=== PATIENT | male | born 1960 | race Caucasian/White ===

== ENCOUNTER → 2025-05-18 09:45 | Outpatient (REF) | payer OTHER, SELFPAY | LOC: RAD 09:45 | PROVIDERS: ATTENDING PHYSICIAN Internal Medicine Cardiovascular Disease; FAMILY PHYSICIAN Internal Medicine | DX: R94.39 Abnormal result of other cardiovascular function study (principal) | CPT/HCPCS: 75574; Q9967 ==

== ENCOUNTER 2025-06-17 08:43 | Emergency (ER) | payer OTHER, SELFPAY ==
[2025-06-17] VITALS (7 sets, daily range): BP systolic 140–169; BP diastolic 69–89
[2025-06-17 08:48] LABS: Glucose - Point of Care 198 mg/dl (70-99)
[2025-06-17 09:28] LABS: Hematocrit 50.3 % (39.0-52.0); Hemoglobin 17.7 g/dL (13.0-18.0); Mean Corp Hgb Conc. 35.2 g/dL (33.0-37.0); Mean Corpuscular Volume 86.4 fL (80.0-94.0); Nucleated Red Blood Cells % 0 % (-); Platelet Count 201 10^3/uL (130-400); Red Cell Dist. Width 12.2 % (11.5-14.5)
[2025-06-17] MEDS: ANTIVERT 25 MG PO (09:29)
[2025-06-17] MEDS: NSS 500 IV (09:29)
--- NOTE | 2025-06-17 09:42 | ED.GENMED ---
History of Present Illness
General
Chief Complaint: Dizziness
Time Seen by Provider: 06/17/25 08:57
Nursing documentation reviewed up to this point in time: agreed with
History of Present Illness
History of Present Illness:
65-year-old male presents to the ER with a friend for evaluation of severe sensation of dizziness, nausea, cold sweat and multiple bowel movements this morning. Patient states that he does have a history of M�ni�re's disease but does not have any
medications at home to take for any symptomatic exacerbations. He states that he been feeling well in the past few days. No recent change in his medications. He has been eating and drinking without difficulty. No recent dental treatments. He
states that he has an appointment with the cardiothoracic surgeon later this month as he is supposed to undergo bypass surgery. He denies any chest pain. No palpitations. No cough or cold symptoms. No recent change in exercise tolerance. He
denies peripheral edema. No paresthesias. No focal weakness to extremities. He denies change in vision, in particular no amaurosis fugax. Patient states that he was experiencing ringing in his ears along with a feeling of pressure in his left
ear this morning which has since resolved. He is still feeling dizzy. He denies any syncope or trauma.
Past History
Past History
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 Has appt. for surgery to have removed. ) and Other (Diabetes)
ED Past Surgical History: Bowel resection and Tonsilectomy
Social History
Tobacco: Non-smoker
Alcohol: Occasional
Drug: None
Personal:
Living: with family
Employment: Employed
Family History
Family History: Other (Dad with bladder cancer and Alzheimer's, mother with angina diabetes)
Review of Systems
Review of Systems
Allergies reviewed?: Yes
Phy Exam
Physical Exam
Physical Exam:
Patient is awake, alert, head is normocephalic atraumatic, elderly, appears in no acute distress, mucous membranes moist, conjunctiva pink, left tympanic membrane is within normal limits without erythema or effusion, tongue is midline, no facial
asymmetry noted, GCS is 15, no dysdiadochokinesia, mild difficulty with the left arm [id number], no pronator drift, moving all extremities symmetrically without focal deficit, heart regular rate and rhythm not murmurs or ectopy, lungs are clear
to auscultation without wheezes rales or rhonchi, abdomen is soft and nontender, 2+ DP pulses present symmetric bilateral feet, no edema noted, bilateral upper extremities with 2+ radial pulses
Course
Orders/Labs/Results
Orders:
Orders
06/17/25 08:48
ECG [Electrocardiogram (*1)] Urgent
Reason for Study: Vertigo / Dizzy
EKG- Treatment ONCE
06/17/25 09:15
Basic Metabolic Panel Urgent
Complete Blood Count/With Diff Urgent
06/17/25 09:21
IV Insert/Care/Rem.- Treatment PRN
0.9% Sodium Chloride 500 ml [Nss] 500 ml IV BOLUS
Meclizine [Antivert] 25 mg PO NOW STA
Pulse Ox/cont/shift [RESP] Stat
Quantity: 1
06/17/25 09:22
CT Head W/o Iv Contrast Urgent
Comment:
Reason For Exam: vertigo
Cardiac Monitoring- Treatment ONCE
CR Chest - 2 Views Urgent
Comment:
Reason For Exam: weakness
06/17/25 09:35
Troponin I Q3H
06/17/25 10:01
Magnesium Urgent
06/17/25 14:35
Troponin I Urgent
06/17/25 15:41
Basic Metabolic Panel Urgent
Abnormal Lab Results
06/17/25 06/17/25
08:47 09:15
Absolute Lymphs (auto) 0.9 L 10^3/uL
(1.2-3.4)
Neutrophils % 80.0 H %
(42.2-75.2)
Lymphocytes % 14.6 L %
(20.5-51.1)
BUN 21 H mg/dl
(9-20)
Glucose 188 H mg/dl
(70-99)
POC Glucose 198 H mg/dl
(70-99)
06/17/25 09:15
CBC very reassuring. Mild elevation BUN with preserved creatinine. Potassium hemolyzed, will resend. Mild elevation of blood sugar with glucose in urine, no ketones, no clinical evidence for DKA.
Vital Signs
Initial and Last Documented VS:
Initial Vital Signs
Temp Pulse Resp BP Pulse Ox
97.7 F 75 18 169/89 99
06/17/25 08:44 06/17/25 08:44 06/17/25 08:44 06/17/25 08:44 06/17/25 08:44
Last Documented Vital Signs
Temp Pulse Resp BP Pulse Ox
97.7 F 78 18 159/86 96
06/17/25 08:44 06/17/25 13:45 06/17/25 13:45 06/17/25 12:00 06/17/25 13:45
MDM/Problems Addressed
Differential Diagnosis Includes:
Differential diagnosis to consider but not limited to vasovagal reaction, atypical ACS, M�ni�re's exacerbation, intracranial hemorrhage, electrolyte dyscrasia along with other etiologies considered
Chronic conditions affecting care:
CAD, diabetes, M�ni�re's
*Radiology
Radiology exam reviewed: radiology read reviewed (IMPRESSION: 1. No acute intracranial abnormality identified. 2. Mild ventriculomegaly as described above, normal pressure hydrocephalus is a consideration.) and other (I independently viewed and
interpreted two-view chest xray showing no acute process. I reviewed radiology interpretation which is in agreement)
*Pulse Oximetry
SaO2: 98
Oxygen Mode of Delivery: Room air
Patient hypoxic: no
*EKG
Interpreted by ED Provider?: Yes (I independently viewed and interpreted twelve-lead EKG showing normal sinus rhythm with incomplete right bundle branch block, rate 75, normal axis, anterior Q waves, this is a nonspecific tracing without evidence
for acute ischemia, similar to prior from 03/30/2013)
*Belt Weaver Interpretation
Rate: normal (I dependently viewed and interpreted rhythm strip showing normal sinus rhythm, incomplete right bundle branch block, no ectopy)
*Critical Care Note
Total Time (30-74mins, 75-104mins- exclusive of procedures): Not Applicable
Update Note
Update Note:
1027: Pt sleeping. Workup very reassuring, no evidence for acute worrisome process. Awaiting repeated trop and chemistries
1602: Patient resting comfortably. He was able to get up and ambulate, no longer feeling severely dizzy. He was able to eat and drink without issue. Repeated troponin is negative as was the first. I discussed with patient plan for discharge home
with prescription meclizine to use as needed for dizziness. I also discussed with patient presence of possible normal pressure hydrocephalus seen on CT scan. Will provide neurology follow-up information, would not think that this is an emergent
issue today as patient is significantly improved at current. Patient feels comfortable plan for discharge and has no questions at the current time
ED Attending Note
-
Portions of this chart may have been created with voice recognition software.� Occasional wrong word or��sound alike� substitutions may have occurred due to the inherent limitations of voice recognition software.
Discharge Plan
Departure
Patient Disposition: Home (Routine Discharge)
Date of Disposition: 06/17/25
Time of Disposition: 16:04
Patient with high blood pressure during this ER visit?: Yes
Discharge Problem:
Vertigo, Abnormal CT of the head
Instructions: Meniere disease, Vertigo (a Type of Dizziness) (DC)
Prescriptions:
New
meclizine 25 mg tablet
25 mg PO TID PRN (Reason: dizziness) Qty: 20 0RF
No Action
ibuprofen [Advil Liqui-Gel] 200 MG capsule
200 mg PO Q4HPRN PRN (Reason: body aches)
loratadine-pseudoephedrine 240 MG/10 MG tablet extended release 24 hr
1 tab PO DAILY
potassium [Potassium-99] 99 MG tablet
99 mg PO BID
Patient Comments:
confirm dose please
magnesium 200 MG tablet
900 mg PO BID
metformin 1,000 MG tablet
1,000 mg PO BID@0800,1700 Qty: 20 0RF
glyburide 5 MG tablet
5 mg PO DAILY Qty: 20 0RF
methocarbamol 750 mg tablet
750 mg PO BID PRN (Reason: pain) Qty: 10 0RF
naproxen [Naprosyn] 500 mg tablet
500 mg PO BID PRN (Reason: pain) Qty: 15 0RF
lidocaine [Lidoderm] 5 % adhesive patch,medicated
1 patch topical DAILY Qty: 30 0RF
Referrals:
Ya Finley MD [Family Provider, Internal Medicine]
Abena Ulloa MD [Active, Neurology] - Next open appointment
Activity Restrictions/Additional Instructions:
Continue your current medications. Please follow-up with both your primary care physician and neurology as referred above to discuss CT findings that may represent changes of 'normal pressure hydrocephalus' in addition to recommendations for
further treatment of M�ni�re's. Use meclizine as prescribed as needed for dizziness. Return to the ER for any concern
Interventions
Interventions:
*Risk Screen - Suicide Last Done: 06/17/25 09:03
*General Assessment Last Done: 06/17/25 08:44
*Neglect/Abuse Screening Last Done: 06/17/25 09:03
*ED- Fall Risk Assessment Last Done: 06/17/25 09:03
*ED COVID-19 Vaccine History Last Done: 06/17/25 09:03
ED- Neurological Assessment Last Done: 06/17/25 09:06
ED- Cardiac Assessment Last Done: 06/17/25 09:06
ED Swallowing Screen Last Done: 06/17/25 09:05
Discharge Date and Time
Print Language: [id number]
[2025-06-17 09:50] LABS: Blood Urea Nitrogen 21 mg/dl (9-20); Calcium 9.3 mg/dl (8.4-10.2); Carbon Dioxide 28 mmol/L (22-30); Chloride 101 mmol/L (98-107); Glucose 188 mg/dl (70-99); Sodium 137 mmol/L (135-145); eGFR > 60.00
[2025-06-17 10:07] LABS: Troponin I < 0.012 ng/ml
[2025-06-17 10:21] LABS: Magnesium 2.0 mg/dl (1.6-2.3)
[2025-06-17 15:05] LABS: Troponin I < 0.012 ng/ml
[2025-06-17 16:47] LABS: Blood Urea Nitrogen 17 mg/dl (9-20); Calcium 8.7 mg/dl (8.4-10.2); Carbon Dioxide 28 mmol/L (22-30); Chloride 104 mmol/L (98-107); Glucose 155 mg/dl (70-99); Potassium 4.0 mmol/L (3.5-5.1); Sodium 138 mmol/L (135-145); eGFR > 60.00
== END 2025-06-17 16:09 | disposition home or self-care (01) ==
LOC: EMR 08:43
PROVIDERS: EMERGENCY PHYSICIAN Emergency Medicine; FAMILY PHYSICIAN Internal Medicine
DX: R42 Dizziness and giddiness (principal); R93.0 Abnormal findings on diagnostic imaging of skull and head, not elsewhere classified; E11.9 Type 2 diabetes mellitus without complications; I45.10 Unspecified right bundle-branch block
CPT/HCPCS: 96360; 96361; 99284; 70450; 71046; 80048; 82962; 83735; 84484; 85025; 93005

== ENCOUNTER → 2025-08-31 12:35 | Outpatient (REF) | payer OTHER, SELFPAY | LOC: RAD 12:35 | PROVIDERS: ATTENDING PHYSICIAN Podiatrist; FAMILY PHYSICIAN Internal Medicine | DX: I70.219 Atherosclerosis of native arteries of extremities with intermittent claudication, unspecified extremity (principal) | CPT/HCPCS: 93922 ==

== ENCOUNTER → 2025-10-27 13:55 | Outpatient (REF) | payer OTHER, SELFPAY | LOC: DHVS 13:55 | PROVIDERS: ATTENDING PHYSICIAN Surgery Vascular Surgery; FAMILY PHYSICIAN Internal Medicine | DX: I73.9 Peripheral vascular disease, unspecified (principal) | CPT/HCPCS: 93970 ==

== ENCOUNTER → 2025-11-06 09:59 | Outpatient (REF) | payer OTHER, SELFPAY | LOC: WDC 09:59 | PROVIDERS: ATTENDING PHYSICIAN General Practice; FAMILY PHYSICIAN Internal Medicine | DX: M79.9 Soft tissue disorder, unspecified (principal) | CPT/HCPCS: 76642 ==